=== PATIENT | female | born 1945 | race Caucasian/White ===

== ENCOUNTER → 2020-10-24 11:12 | Outpatient (BNVA) | payer MEDICARE, SELFPAY | PROVIDERS: Family Provider Family Medicine; Visit Provider Nurse Practitioner Family | DX: Z20.822 Contact with and (suspected) exposure to COVID-19 (principal); J06.9 Acute upper respiratory infection, unspecified | CPT/HCPCS: 87635 ==

== ENCOUNTER → 2022-03-07 12:06 | Outpatient (BNVA) | payer MEDICARE, SELFPAY | PROVIDERS: Family Provider Family Medicine; PCP Family Medicine; Visit Provider Clinical Nurse Specialist Adult Health | DX: N30.00 Acute cystitis without hematuria (principal); R35.0 Frequency of micturition | CPT/HCPCS: 81000; 87077; 87086; 87184 ==

== ENCOUNTER → 2023-01-29 08:59 | Outpatient (BNVA) | payer MEDICARE, SELFPAY | PROVIDERS: Family Provider Family Medicine; Visit Provider Family Medicine | DX: Z00.00 Encounter for general adult medical examination without abnormal findings (principal); Z78.0 Asymptomatic menopausal state; Z13.6 Encounter for screening for cardiovascular disorders; Z13.29 Encounter for screening for other suspected endocrine disorder; Z13.1 Encounter for screening for diabetes mellitus; C50.919 Malignant neoplasm of unspecified site of unspecified female breast; H40.9 Unspecified glaucoma; M72.2 Plantar fascial fibromatosis; Z23 Encounter for immunization | CPT/HCPCS: 80053; 80061; 82306; 83036; 84443; 85025 ==

== ENCOUNTER → 2023-12-05 09:44 | Outpatient (BNVA) | payer MEDICARE, SELFPAY | PROVIDERS: Family Provider Family Medicine; PCP Family Medicine; Visit Provider Family Medicine | DX: G25.81 Restless legs syndrome (principal); M79.2 Neuralgia and neuritis, unspecified; M81.0 Age-related osteoporosis without current pathological fracture | CPT/HCPCS: 80053; 82306; 82607; 83735; 84443; 85025 ==

== ENCOUNTER 2024-07-20 10:32 | Outpatient (RCR) | payer MEDICARE, SELFPAY | END 2024-08-02 14:17 | disposition home or self-care (01) | LOC: SPT 10:32 | PROVIDERS: Visit Provider Emergency Medicine | DX: S83.421D Sprain of lateral collateral ligament of right knee, subsequent encounter (principal); M23.261 Derangement of other lateral meniscus due to old tear or injury, right knee; M17.0 Bilateral primary osteoarthritis of knee; X58.XXXD Exposure to other specified factors, subsequent encounter | CPT/HCPCS: 97110; 97161; 97530 ==

== ENCOUNTER → 2025-02-04 10:28 | Outpatient (BNVA) | payer MEDICARE, SELFPAY | PROVIDERS: PCP Family Medicine; Visit Provider Family Medicine | DX: Z13.1 Encounter for screening for diabetes mellitus (principal); Z00.00 Encounter for general adult medical examination without abnormal findings; M81.0 Age-related osteoporosis without current pathological fracture; D64.9 Anemia, unspecified | CPT/HCPCS: 80053; 82306; 83036; 85025 ==